=== PATIENT | female | born 1990 | race Asian ===

== ENCOUNTER 2019-06-24 10:04 | Day surgery (SDC) | payer BC ==
[~2019-06-24] VITALS: Ht 160 cm; Wt 55.6 kg
[~2019-06-24 10:04] MED LIST: FERROUS SULFATE; VITAMIN C; [UNRECOGNIZED DRUG - CODE] PO
[2019-06-24 10:45] VITALS: Ht 160 cm; Wt 55.6 kg
[2019-06-24] MEDS ORDERED: LIDOCAINE 4% SOLUTION 50 ML BTL ONE (11:08)
[2019-06-24 11:09] VITALS: BP 115/71; PULSE 68; RESP 14
[2019-06-24 12:00] VITALS: BP 106/66; PULSE 74; RESP 15
[2019-06-24] MEDS ORDERED: MIDAZOLAM 1 MG/ML 2 ML INJ ONE ×2 (12:06→12:07)
[2019-06-24] MEDS ORDERED: FENTAnyl 50 MCG/ML VIAL ONE (12:07)
== END 2019-06-24 15:31 | disposition home or self-care (01) ==
LOC: GIL 10:04
PROVIDERS: ATTEND Internal Medicine Gastroenterology
DX: K29.50 Unspecified chronic gastritis without bleeding (principal)
CPT/HCPCS: 43239; 84703; 88305; 88312; J2250; J3010; Z7610